=== PATIENT | female | born 1990 | race Caucasian/White ===

== ENCOUNTER 2021-10-03 13:22 | Emergency (ER) | payer MEDICAID ==
[~2021-10-03] VITALS: Ht 154.9 cm; Wt 68.0 kg
[2021-10-03 13:30] VITALS: BP_SYST 147
[2021-10-03] MEDS ORDERED: KETOROLAC TROMETHAMINE 30 MG VIAL IM ONE (14:30)
[2021-10-03] MEDS ORDERED: IBUP-1969 PO (15:59)
[2021-10-03] MEDS ORDERED: LIDO1ADH77 TP (15:59)
[2021-10-03 16:31] VITALS: BP_SYST 147
== END 2021-10-03 16:31 | disposition home or self-care (01) ==
LOC: SED 13:22
DX: R07.1 Chest pain on breathing (principal); Z79.899 Other long term (current) drug therapy
CPT/HCPCS: 71045; 81025; 93005; 96372; 99283; J1885; 99284